=== PATIENT | female | born 1970 | race Caucasian/White ===

== ENCOUNTER 2024-04-11 15:12 | Emergency (ER) | payer MEDICARE ==
[2024-04-11] VITALS (13 sets, daily range): BP systolic 109–138; BP diastolic 74–92
[2024-04-11] MEDS ORDERED: IBUPROFEN 800 MG/TAB PO ONE (16:15)
[2024-04-11] MEDS ORDERED: MOTRIN800 MG PO (18:29)
== END 2024-04-11 18:50 | disposition home or self-care (01) ==
LOC: ED 15:12
DX: R07.81 Pleurodynia (principal); F17.290 Nicotine dependence, other tobacco product, uncomplicated; Y09 Assault by unspecified means